=== PATIENT | male | born 1955 | race African-American/Black ===

== ENCOUNTER 2016-03-24 14:30 | Outpatient (RCR) | payer MEDICAID, MEDICARE ==
[~2016-03-24 14:30] MED LIST: LYRI75CA OR; RYZOLT PO; SOMA350T OR; VICO5TAB OR
== END 2016-04-05 ==
LOC: M PT 14:30
PROVIDERS: ATTEND Anesthesiology Pain Medicine
DX: Z51.89 Encounter for other specified aftercare (principal); M54.2 Cervicalgia; M79.1 Myalgia; M25.552 Pain in left hip
CPT/HCPCS: 97162; G8978; G8979

== ENCOUNTER 2016-04-25 10:44 | Outpatient (RCR) | payer MEDICARE | END 2016-05-06 | LOC: M PT 10:44 | PROVIDERS: ATTEND Anesthesiology Pain Medicine | DX: Z51.89 Encounter for other specified aftercare (principal); M79.1 Myalgia; M54.2 Cervicalgia; M25.552 Pain in left hip; M54.5 Low back pain | CPT/HCPCS: 97110; G8978; G8979 ==

== ENCOUNTER 2016-05-23 10:45 | Outpatient (RCR) | payer MEDICARE | END 2016-06-05 | disposition home or self-care (01) | LOC: M PT 10:45 | PROVIDERS: ATTEND Anesthesiology Pain Medicine | DX: Z51.89 Encounter for other specified aftercare (principal); M79.1 Myalgia; M54.5 Low back pain; M25.552 Pain in left hip; M54.2 Cervicalgia | CPT/HCPCS: 97110; G8978; G8979 ==

== ENCOUNTER 2017-09-26 10:49 | Emergency (ER) | payer MEDICARE, MEDICAID ==
[2017-09-26 12:42] LABS: KETONE, URINE AUTO RFX NEGATIVE (NEGATIVE); LEUKOCYTE ESTERASE UR AUTO RFX NEGATIVE (NEGATIVE); MUCUS, URINE RFX SMALL (NEGATIVE); NITRITE, URINE AUTO RFX NEGATIVE (NEGATIVE); RBC, URINE AUTO RFX 42 /HPF (0-3); SQUAM EPITHELIAL CELL UR AURFX 0 /HPF (0-6); WBC, URINE AUTO RFX 3 /HPF (0-3); YEAST LIKE CELL URINE AUTO RFX SMALL
[2017-09-26 14:17] LABS: CHLAMYDIA DNA AMPLIFICATION NEGATIVE (NEGATIVE); GC DNA AMPLIFICATION NEGATIVE (NEGATIVE)
== END 2017-09-26 13:14 | disposition home or self-care (01) ==
LOC: M ED 10:49
DX: R31.0 Gross hematuria (principal); N50.811 Right testicular pain; M54.9 Dorsalgia, unspecified; F17.210 Nicotine dependence, cigarettes, uncomplicated; Z88.8 Allergy status to other drugs, medicaments and biological substances; Z79.899 Other long term (current) drug therapy
CPT/HCPCS: 76870

== ENCOUNTER → 2017-10-27 | Outpatient (CLI) | payer MEDICARE, MEDICAID ==
[2017-10-27 17:15] LABS: ANION GAP 7 MEQ/L (8-16); BLOOD UREA NITROGEN 8 MG/DL (7-18); CALCIUM LEVEL 9.6 MG/DL (8.8-10.2); CARBON DIOXIDE LEVEL 31 MEQ/L (21-32); CHLORIDE LEVEL 103 MEQ/L (98-107); CREATININE FOR GFR 0.76 MG/DL (0.70-1.30); GLOMERULAR FILTRATION RATE > 60.0 (>49); GLUCOSE, FASTING 77 MG/DL (70-100); POTASSIUM SERUM 4.6 MEQ/L (3.5-5.1); PSA SCREENING 0.83 NG/ML (< 4.0); SODIUM LEVEL 141 MEQ/L (136-145)
[2017-10-27 18:19] LABS: APPEARANCE, URINE CLEAR (CLEAR); BACTERIA, URINE AUTO NEGATIVE (NEGATIVE); BILIRUBIN, URINE AUTO NEGATIVE (NEGATIVE); BLOOD, URINE BLOOD NEGATIVE (NEGATIVE); COLOR, URINE YELLOW (YELLOW); GLUCOSE, URINE (UA) AUTO NEGATIVE (NEGATIVE); KETONE, URINE AUTO NEGATIVE (NEGATIVE); LEUKOCYTE ESTERASE, URINE AUTO NEGATIVE (NEGATIVE); NITRITE, URINE AUTO NEGATIVE (NEGATIVE); PROTEIN, URINE AUTO NEGATIVE (NEGATIVE); RBC, URINE AUTO 1 /HPF (0-3); SPECIFIC GRAVITY URINE AUTO 1.018 (1.002-1.035); SQUAMOUS EPITHELIAL CELL UR AU 0 /HPF (0-6); WBC, URINE AUTO 1 /HPF (0-3)
== END ==
LOC: M SMT 14:13
DX: Z12.5 Encounter for screening for malignant neoplasm of prostate (principal); R31.0 Gross hematuria
CPT/HCPCS: 80048

== ENCOUNTER → 2017-11-02 | Outpatient (CLI) | payer MEDICARE, MEDICAID ==
[~2017-11-02] MED LIST changes: +ISOVUE-370 76% 100ML VIAL (Q9967) As Ordered; -LYRI75CA OR; -RYZOLT PO; -SOMA350T OR; -VICO5TAB OR
== END ==
LOC: M RAD 15:58
DX: R31.0 Gross hematuria (principal); M47.896 Other spondylosis, lumbar region; N40.0 Benign prostatic hyperplasia without lower urinary tract symptoms
CPT/HCPCS: Q9967

== ENCOUNTER → 2018-05-22 | Outpatient (REF) | payer MEDICARE, MEDICAID, OTHER ==
[~2018-05-22] MED LIST changes: +HYDROCO/APAP; -ISOVUE-370 76% 100ML VIAL (Q9967) As Ordered; +LYRI150C; +LYRI75CA OR; +RYZOLT PO; +SOMA350T OR; +TRAV04OPD; +VICO5TAB OR
[2018-05-22 09:46] LABS: BASO % 0.3 % (0.0-1.0); EOS # 0.1 10^3/uL (0.0-0.50); EOS % 1.5 % (0.0-3.0); HEMATOCRIT 51.9 % (42.0-52.0); HEMOGLOBIN 17.2 g/dl (13.5-17.5); LYMPH # 2.8 10^3/uL (1.5-4.5); LYMPH % 48.3 % (24.0-44.0); MEAN CORPUSCULAR HEMOGLOBIN 30.8 pg (27.0-33.0); MEAN CORPUSCULAR HGB CONC 33.1 g/dl (32.0-36.5); MONO # 0.5 10^3/uL (0.0-0.8); MONO % 8.4 % (0.0-5.0); NEUTROPHILS # 2.4 10^3/uL (1.8-7.7); NEUTROPHILS % 41.2 % (36.0-66.0); PLATELET COUNT, AUTOMATED 217 10^3/uL (150-450); RED BLOOD COUNT 5.58 10^6/uL (4.30-6.10); WHITE BLOOD COUNT 5.8 10^3/uL (4.0-10.0)
[2018-05-22 10:06] LABS: ALBUMIN 4.4 GM/DL (3.2-5.2); ALT/SGPT 43 U/L (12-78); BILIRUBIN,TOTAL 0.9 MG/DL (0.2-1.0); BLOOD UREA NITROGEN 9 MG/DL (7-18); CALCIUM LEVEL 9.7 MG/DL (8.8-10.2); CARBON DIOXIDE LEVEL 28 MEQ/L (21-32); CHLORIDE LEVEL 106 MEQ/L (98-107); CHOLESTEROL LEVEL 206 MG/DL (<200); CHOLESTEROL RISK RATIO 3.745 (<5); CREATININE FOR GFR 0.87 MG/DL (0.70-1.30); GLOMERULAR FILTRATION RATE > 60.0 (>49); GLUCOSE, FASTING 83 MG/DL (70-100); HDL CHOLESTEROL 55 MG/DL (>40); LDL CHOLESTEROL 124 MG/DL (<100); NON-HDL-C 151 MG/DL; POTASSIUM SERUM 4.1 MEQ/L (3.5-5.1); SODIUM LEVEL 140 MEQ/L (136-145); TOTAL PROTEIN 7.9 GM/DL (6.4-8.2); TRIGLYCERIDES LEVEL 133 MG/DL (<150)
[2018-05-22 10:17] LABS: APPEARANCE, URINE HAZY (CLEAR); BACTERIA, URINE AUTO NEGATIVE (NEGATIVE); BILIRUBIN, URINE AUTO NEGATIVE (NEGATIVE); BLOOD, URINE BLOOD NEGATIVE (NEGATIVE); COLOR, URINE AMBER (YELLOW); GLUCOSE, URINE (UA) AUTO NEGATIVE (NEGATIVE); KETONE, URINE AUTO NEGATIVE (NEGATIVE); LEUKOCYTE ESTERASE, URINE AUTO NEGATIVE (NEGATIVE); MUCUS, URINE SMALL (NEGATIVE); NITRITE, URINE AUTO NEGATIVE (NEGATIVE); PROTEIN, URINE AUTO NEGATIVE (NEGATIVE); RBC, URINE AUTO 0 /HPF (0-3); SPECIFIC GRAVITY URINE AUTO 1.019 (1.002-1.035); SQUAMOUS EPITHELIAL CELL UR AU 0 /HPF (0-6); WBC, URINE AUTO 1 /HPF (0-3)
== END ==
LOC: SKLABADC 08:56
PROVIDERS: ATTEND Family Medicine
DX: R60.9 Edema, unspecified (principal); Z79.899 Other long term (current) drug therapy

== ENCOUNTER → 2021-06-21 | Outpatient (CLI) | payer MEDICARE, MEDICAID ==
[2021-06-21 13:41] LABS: BASO % 0.3 % (0.0-1.0); EOS # 0.1 10^3/uL (0.0-0.5); EOS % 0.8 % (0.0-3.0); HEMATOCRIT 49.1 % (42.0-52.0); HEMOGLOBIN 16.2 g/dl (13.5-17.5); LYMPH # 1.7 10^3/uL (1.5-5.0); LYMPH % 23.5 % (24.0-44.0); MEAN CORPUSCULAR HEMOGLOBIN 31.1 pg (27.0-33.0); MEAN CORPUSCULAR VOLUME 94.2 fl (80.0-96.0); MONO # 0.7 10^3/uL (0.0-0.8); MONO % 9.6 % (2.0-8.0); NEUTROPHILS # 4.7 10^3/uL (1.5-8.5); NEUTROPHILS % 65.4 % (36.0-66.0); PLATELET COUNT, AUTOMATED 237 10^3/uL (150-450); RED BLOOD COUNT 5.21 10^6/uL (4.30-6.10); WHITE BLOOD COUNT 7.2 10^3/uL (4.0-10.0)
[2021-06-21 14:15] LABS: ALBUMIN 4.1 GM/DL (3.2-5.2); ALT/SGPT 44 U/L (12-78); BILIRUBIN,TOTAL 0.6 MG/DL (0.2-1.0); BLOOD UREA NITROGEN 10 MG/DL (7-18); CALCIUM LEVEL 9.9 MG/DL (8.8-10.2); CARBON DIOXIDE LEVEL 32 MEQ/L (21-32); CHLORIDE LEVEL 103 MEQ/L (98-107); CHOLESTEROL LEVEL 131 MG/DL (<200); CHOLESTEROL RISK RATIO 2.381 (<5); CREATININE FOR GFR 0.81 MG/DL (0.70-1.30); GLOMERULAR FILTRATION RATE > 60.0 (>49); GLUCOSE, FASTING 85 MG/DL (70-100); HDL CHOLESTEROL 55 MG/DL (>40); LDL CHOLESTEROL 61 MG/DL (<100); NON-HDL-C 76 MG/DL; POTASSIUM SERUM 3.9 MEQ/L (3.5-5.1); SODIUM LEVEL 138 MEQ/L (136-145); TOTAL PROTEIN 7.3 GM/DL (6.4-8.2); TRIGLYCERIDES LEVEL 75 MG/DL (<150)
== END ==
LOC: M PLALAB 10:12
PROVIDERS: ATTEND Family Medicine
DX: Z12.5 Encounter for screening for malignant neoplasm of prostate (principal); E78.5 Hyperlipidemia, unspecified; R60.9 Edema, unspecified
CPT/HCPCS: 36415; 80053; 80061; 85025; G0103

== ENCOUNTER 2021-12-02 10:15 | Emergency (ER) | payer MEDICARE ==
[~2021-12-02] VITALS: Ht 185.4 cm; Wt 77.3 kg
[2021-12-02] MEDS ORDERED: TRAV2.5D (10:28)
[2021-12-02] MEDS ORDERED: HYDR-4517 (10:28)
[2021-12-02] MEDS ORDERED: PREG200C (10:28)
[2021-12-02] MEDS ORDERED: CARI1TAB7 (10:28)
[2021-12-02 10:38] VITALS: BP 150/101
== END 2021-12-02 11:28 | disposition left against medical advice (07) ==
LOC: M ED 10:15
DX: Z53.21 Procedure and treatment not carried out due to patient leaving prior to being seen by health care provider (principal)

== ENCOUNTER → 2024-08-12 | Outpatient (CLI) | payer MEDICARE, MEDICAID ==
[~2024-08-12] MED LIST changes: +ACET-683 PO; +CARI-555 PO; +CEFD1CAP9 PO; +CEFD300CAP PO; +DOCU8.6T PO; +HYDR-4514 PO; +HYDR-4517 PO; +IBUP-1114 PO; +IPRA0.00 NEB; +LYRI200C PO; +METH-1164 PO; +MIRA33506 PO; +OXYC10TA12 PO; +PREG200C2 PO; +RISATAB3 PO; +SOMA350T PO; +TRAV2.5D OU
== END ==
LOC: M PAL 08:58
PROVIDERS: ATTEND Physician Assistant
DX: Z51.5 Encounter for palliative care (principal); C34.90 Malignant neoplasm of unspecified part of unspecified bronchus or lung; Z92.3 Personal history of irradiation; Z74.1 Need for assistance with personal care; Z79.891 Long term (current) use of opiate analgesic; Z88.0 Allergy status to penicillin; Z88.1 Allergy status to other antibiotic agents; Z88.5 Allergy status to narcotic agent; Z79.899 Other long term (current) drug therapy

== ENCOUNTER → 2024-08-13 | Outpatient (CLI) | payer MEDICARE, MEDICAID | LOC: M PLARAD 11:50 | PROVIDERS: ATTEND General Practice | DX: C34.12 Malignant neoplasm of upper lobe, left bronchus or lung (principal) | CPT/HCPCS: 78815; A9552 ==

== ENCOUNTER → 2024-08-14 | Outpatient (CLI) | payer MEDICARE, MEDICAID | LOC: M ONCR 14:01 | PROVIDERS: ATTEND General Practice | DX: C34.31 Malignant neoplasm of lower lobe, right bronchus or lung (principal); J86.9 Pyothorax without fistula; F17.210 Nicotine dependence, cigarettes, uncomplicated; G82.20 Paraplegia, unspecified; Z79.899 Other long term (current) drug therapy; Z88.0 Allergy status to penicillin; Z88.8 Allergy status to other drugs, medicaments and biological substances; Z92.3 Personal history of irradiation ==

== ENCOUNTER → 2024-08-20 | Outpatient (CLI) | payer MEDICARE, MEDICAID ==
[~2024-08-20] VITALS: Ht 185.4 cm; Wt 68.1 kg
[2024-08-20 10:17] VITALS: BP 152/104; O2SAT 98
== END ==
LOC: M PAL 10:04
PROVIDERS: ATTEND Physician Assistant
DX: Z51.5 Encounter for palliative care (principal); C34.90 Malignant neoplasm of unspecified part of unspecified bronchus or lung; Z92.3 Personal history of irradiation; Z74.1 Need for assistance with personal care; Z79.891 Long term (current) use of opiate analgesic; Z88.0 Allergy status to penicillin; Z88.1 Allergy status to other antibiotic agents; Z88.5 Allergy status to narcotic agent

== ENCOUNTER 2024-08-30 13:47 | Outpatient (RCR) | payer MEDICARE, MEDICAID | END 2024-09-05 | LOC: M ONCR 13:47 | PROVIDERS: ATTEND General Practice | DX: Z51.0 Encounter for antineoplastic radiation therapy (principal); C34.12 Malignant neoplasm of upper lobe, left bronchus or lung ==

== ENCOUNTER 2024-09-17 14:08 | Observation (INO) | payer MEDICARE, MEDICAID ==
[~2024-09-17] VITALS: Ht 185.4 cm; Wt 63.1 kg
[2024-09-17] MEDS ORDERED: HOME MED LIST COMPLETE! XX SCH (15:40)
[2024-09-17] MEDS: ACETAMINOPHEN 500 MG TAB PO SCH (18:00)
[2024-09-17 18:24] LABS: PLATELET COUNT, AUTOMATED 216 10^3/uL (150-450)
[2024-09-17 18:38] LABS: ALT/SGPT 19 U/L (7.0-40); AST/SGOT 24 U/L (<34); CALCIUM LEVEL 9.4 MG/DL (8.3-10.6); CARBON DIOXIDE LEVEL 29 MMOL/L (20-31); CHLORIDE LEVEL 103 MMOL/L (98-107); CREATININE FOR GFR 0.55 MG/DL (0.70-1.30); GLOMERULAR FILTRATION RATE > 90.0 (>49); POTASSIUM SERUM 3.4 MMOL/L (3.5-5.1); SODIUM LEVEL 142 MMOL/L (136-145)
[2024-09-17 20:01] VITALS: BP 139/99; TEMP 98.2; O2SAT 100
[2024-09-17] MEDS: SENNOSIDES/DOCUSATE SODIUM 8.6 MG/50MG TAB PO SCH (21:37)
[2024-09-17] MEDS: HEPARIN SOD 5000 UNITS/ML 1 ML VIAL/SYRINGE SQ SCH (21:38)
[2024-09-17] MEDS: PREGABALIN 100 MG CAP PO SCH (21:38)
[2024-09-17] MEDS: HYDROcodone/APAP LIQUID 7.5-325 MG 15 ML UDC PO PRN (21:44)
[2024-09-18 04:00] VITALS: BP 141/96; TEMP 98.1; O2SAT 99
[2024-09-18 08:48] LABS: PLATELET COUNT, AUTOMATED 258 10^3/uL (150-450)
[2024-09-18 09:18] LABS: ALT/SGPT 17 U/L (7.0-40); AST/SGOT 25 U/L (<34); CALCIUM LEVEL 9.9 MG/DL (8.3-10.6); CARBON DIOXIDE LEVEL 34 MMOL/L (20-31); CHLORIDE LEVEL 101 MMOL/L (98-107); CREATININE FOR GFR 0.59 MG/DL (0.70-1.30); GLOMERULAR FILTRATION RATE > 90.0 (>49); POTASSIUM SERUM 3.5 MMOL/L (3.5-5.1); SODIUM LEVEL 144 MMOL/L (136-145)
[2024-09-18] MEDS: MIRALAX *UNIT DOSE* 17 GM PACKET PO SCH (09:56)
[2024-09-18 12:23] VITALS: BP 140/95; TEMP 98.1; O2SAT 96
[2024-09-18 20:00] VITALS: BP 152/94; TEMP 98.8; O2SAT 99
[2024-09-19 04:57] VITALS: BP 156/103; TEMP 98.8; O2SAT 98
[2024-09-19 11:39] VITALS: BP 139/95; TEMP 98.8; O2SAT 91
[2024-09-20 02:17] VITALS: BP 137/88; TEMP 98.4; O2SAT 99
[2024-09-20 10:17] LABS: BASO # 0.0 10^3/uL (0.0-0.2); BASO % 0.3 % (0.0-1.0); EOS # 0.1 10^3/uL (0.0-0.5); EOS % 3.7 % (0.0-3.0); LYMPH # 1.1 10^3/uL (1.5-5.0); LYMPH % 32.2 % (24.0-44.0); MONO # 0.4 10^3/uL (0.0-0.8); MONO % 11.4 % (2.0-8.0); NEUTROPHILS # 1.8 10^3/uL (1.5-8.5); NEUTROPHILS % 51.8 % (36.0-66.0); PLATELET COUNT, AUTOMATED 234 10^3/uL (150-450)
[2024-09-20 11:12] LABS: ALT/SGPT 18 U/L (7.0-40); AST/SGOT 30 U/L (<34); CALCIUM LEVEL 9.3 MG/DL (8.3-10.6); CARBON DIOXIDE LEVEL 26 MMOL/L (20-31); CHLORIDE LEVEL 103 MMOL/L (98-107); CREATININE FOR GFR 0.53 MG/DL (0.70-1.30); GLOMERULAR FILTRATION RATE > 90.0 (>49); MAGNESIUM LEVEL 1.8 MG/DL (1.8-2.4); POTASSIUM SERUM 3.8 MMOL/L (3.5-5.1); SODIUM LEVEL 142 MMOL/L (136-145)
[2024-09-21 04:00] VITALS: BP 133/88; TEMP 98.6; O2SAT 99
[2024-09-22 03:54] VITALS: BP 147/98; TEMP 98.4; O2SAT 99
[2024-09-23 05:10] VITALS: BP 137/93; TEMP 98.1; O2SAT 95
[2024-09-23 07:57] LABS: BASO # 0.0 10^3/uL (0.0-0.2); BASO % 0.3 % (0.0-1.0); EOS # 0.1 10^3/uL (0.0-0.5); EOS % 2.8 % (0.0-3.0); LYMPH # 1.0 10^3/uL (1.5-5.0); LYMPH % 31.3 % (24.0-44.0); MONO # 0.4 10^3/uL (0.0-0.8); MONO % 10.7 % (2.0-8.0); NEUTROPHILS # 1.8 10^3/uL (1.5-8.5); NEUTROPHILS % 54.3 % (36.0-66.0); PLATELET COUNT, AUTOMATED 228 10^3/uL (150-450)
[2024-09-23] MEDS ORDERED: CISPLATIN IV ONE (08:00)
[2024-09-23] MEDS ORDERED: NS IV ONE ×2 (08:00→09:00)
[2024-09-23 08:37] LABS: ALT/SGPT 31 U/L (7.0-40); AST/SGOT 43 U/L (<34); CALCIUM LEVEL 9.6 MG/DL (8.3-10.6); CARBON DIOXIDE LEVEL 32 MMOL/L (20-31); CHLORIDE LEVEL 100 MMOL/L (98-107); CREATININE FOR GFR 0.50 MG/DL (0.70-1.30); GLOMERULAR FILTRATION RATE > 90.0 (>49); MAGNESIUM LEVEL 1.8 MG/DL (1.8-2.4); POTASSIUM SERUM 4.4 MMOL/L (3.5-5.1); SODIUM LEVEL 142 MMOL/L (136-145)
[2024-09-23] MEDS ORDERED: ETOPOSIDE IV ONE (09:00)
[2024-09-23] MEDS: PALONOSETRON 250 MCG IV IV ONE (10:26)
[2024-09-23] MEDS: dexameTHASONE 10 MG IV IV ONE (10:27)
[2024-09-23] MEDS: NS (Normal Saline) 0.9% 1,000 ML IV ONE ×2 (10:27→14:56)
[2024-09-23] MEDS: FOSAPREPITANT IV ONE (10:27)
[2024-09-23] MEDS: SODIUM CHLORIDE IV ONE (10:27)
[2024-09-23] MEDS ORDERED: ALBUTEROL SULFATE 2.5 MG/0.5 ML INH CONCENTRATE NEB SOLN INH PRN (11:00)
[2024-09-23] MEDS ORDERED: diphenhydrAMINE 50 MG/ML VIAL IV PRN (11:00)
[2024-09-23] MEDS ORDERED: FAMOTIDINE 20 MG/2 ML VIAL IV PRN (11:00)
[2024-09-23] MEDS ORDERED: EPINEPHrine INJ 1 MG/ML 1ML AMP IM PRN (11:00)
[2024-09-23] MEDS ORDERED: NS (Normal Saline) 0.9% 1,000 ML IV PRN (11:00)
[2024-09-23] MEDS: NS IV ONE ×2 (11:43→11:45)
[2024-09-23] MEDS: CISPLATIN IV ONE (11:43)
[2024-09-23] MEDS: ETOPOSIDE IV ONE (11:45)
[2024-09-23] MEDS ORDERED: SODIUM CHLORIDE 0.9% INJ 10 ML SYR IV PRN (12:40)
[2024-09-24 04:02] VITALS: BP 156/90; TEMP 98.6; O2SAT 98
[2024-09-24] MEDS: NS (Normal Saline) 0.9% 1,000 ML IV ONE ×2 (09:25→13:21)
[2024-09-24] MEDS: dexameTHASONE 10 MG IV IV ONE (09:25)
[2024-09-24] MEDS: NS IV ONE ×2 (10:45→12:03)
[2024-09-24] MEDS: CISPLATIN IV ONE (10:45)
[2024-09-24] MEDS: ETOPOSIDE IV ONE (12:03)
[2024-09-25] VITALS: BP 127/88; TEMP 98.6; O2SAT 100
[2024-09-25] MEDS: NS (Normal Saline) 0.9% 1,000 ML IV ONE ×2 (09:41→13:09)
[2024-09-25] MEDS: dexameTHASONE 10 MG IV IV ONE (09:42)
[2024-09-25] MEDS: CISPLATIN IV ONE (10:23)
[2024-09-25] MEDS: NS IV ONE ×2 (10:23→11:43)
[2024-09-25] MEDS: ETOPOSIDE IV ONE (11:43)
[2024-09-25] MEDS ORDERED: LYRI200C PO (16:02)
[2024-09-25] MEDS ORDERED: METH-1164 PO (16:02)
== END 2024-09-25 16:25 | disposition home or self-care (01) ==
LOC: M ED 14:08 → M ED INP 14:09 → M MSPAV 19:53
PROVIDERS: ADMIT Internal Medicine; ATTEND Internal Medicine
DX: B88.2 Other arthropod infestations (principal); C34.32 Malignant neoplasm of lower lobe, left bronchus or lung; G82.20 Paraplegia, unspecified; J85.2 Abscess of lung without pneumonia; N40.0 Benign prostatic hyperplasia without lower urinary tract symptoms; F17.218 Nicotine dependence, cigarettes, with other nicotine-induced disorders; F11.20 Opioid dependence, uncomplicated; Z79.899 Other long term (current) drug therapy
CPT/HCPCS: 36415; 77336; 77373; 80053; 83735; 85025; 85027; 96361; 96372; 96374; 96375; 96376; 96413; 96415; 97161; 97530; 99284; G0378; J1100; J1453; J2469; J9060; J9181

== ENCOUNTER 2024-09-24 16:00 | Outpatient (RCR) | payer MEDICARE, MEDICAID ==
[2024-09-25] MEDS ORDERED: METH-1164 PO (16:02)
[2024-09-25] MEDS ORDERED: LYRI200C PO (16:02)
== END 2024-10-06 ==
LOC: M ONCR 16:00
PROVIDERS: ATTEND General Practice
DX: Z51.0 Encounter for antineoplastic radiation therapy (principal); C34.12 Malignant neoplasm of upper lobe, left bronchus or lung

== ENCOUNTER → 2024-10-18 | Outpatient (CLI) | payer MEDICARE, MEDICAID ==
[2024-10-18 15:25] LABS: BASO # 0.0 10^3/uL (0.0-0.2); BASO % 0.5 % (0.0-1.0); EOS # 0.0 10^3/uL (0.0-0.5); EOS % 0.4 % (0.0-3.0); LYMPH # 1.1 10^3/uL (1.5-5.0); LYMPH % 18.9 % (24.0-44.0); MONO # 1.1 10^3/uL (0.0-0.8); MONO % 19.6 % (2.0-8.0); NEUTROPHILS # 3.3 10^3/uL (1.5-8.5); NEUTROPHILS % 59.0 % (36.0-66.0); PLATELET COUNT, AUTOMATED 339 10^3/uL (150-450)
[2024-10-18 15:27] LABS: ALT/SGPT 23 U/L (7.0-40); AST/SGOT 31 U/L (<34); CALCIUM LEVEL 10.3 MG/DL (8.3-10.6); CARBON DIOXIDE LEVEL 31 MMOL/L (20-31); CHLORIDE LEVEL 101 MMOL/L (98-107); CREATININE FOR GFR 0.48 MG/DL (0.70-1.30); GLOMERULAR FILTRATION RATE > 90.0 (>49); POTASSIUM SERUM 4.4 MMOL/L (3.5-5.1); SODIUM LEVEL 141 MMOL/L (136-145)
== END ==
LOC: M PLALAB 11:50
PROVIDERS: ATTEND Specialist
DX: C34.90 Malignant neoplasm of unspecified part of unspecified bronchus or lung (principal)

== ENCOUNTER → 2024-10-21 | Outpatient (CLI) | payer MEDICARE, MEDICAID ==
[~2024-10-21] MED LIST changes: +MIDAZOLAM INJ 2 MG/2 ML VIAL IV PRN; +NS (Normal Saline) 0.9% 1,000 ML IV SCH; +SENN-23 PO; +ceFAZolin SODIUM 2 GM in DEXTROSE 5% (D5W) ADV/MINI-BAG 50 ML IV ONE
[2024-10-21] MEDS: LIDOCAINE 1% MDV 20 ML VIAL SC SCH (18:54)
== END ==
LOC: M IRPRO 16:53
PROVIDERS: ATTEND Internal Medicine Hematology & Oncology
DX: C34.90 Malignant neoplasm of unspecified part of unspecified bronchus or lung (principal)

== ENCOUNTER → 2024-10-21 | Outpatient (CLI) | payer MEDICARE, MEDICAID ==
[~2024-10-21] MED LIST changes: -MIDAZOLAM INJ 2 MG/2 ML VIAL IV PRN; -NS (Normal Saline) 0.9% 1,000 ML IV SCH; +PROHANCE 279.3MG/ML 15ML VIAL As Ordered ONE; -SENN-23 PO; -ceFAZolin SODIUM 2 GM in DEXTROSE 5% (D5W) ADV/MINI-BAG 50 ML IV ONE
== END ==
LOC: M RAD 16:57
PROVIDERS: ATTEND Internal Medicine Hematology & Oncology
DX: C34.90 Malignant neoplasm of unspecified part of unspecified bronchus or lung (principal)

== ENCOUNTER 2024-10-24 09:43 | Emergency (ER) | payer MEDICARE, MEDICAID ==
[~2024-10-24] VITALS: Ht 185.4 cm; Wt 62.6 kg
[~2024-10-24 09:43] MED LIST changes: -PROHANCE 279.3MG/ML 15ML VIAL As Ordered ONE
[2024-10-24] MEDS ORDERED: HEPARIN LOCK FLUSH 100 UNITS/ML 3 ML SYRINGE IV PRN (10:05)
[2024-10-24] MEDS ORDERED: SODIUM CHLORIDE 0.9% INJ 10 ML SYR IV PRN (10:05)
[2024-10-24 11:15] LABS: BASO # 0.0 10^3/uL (0.0-0.2); BASO % 0.0 % (0.0-1.0); EOS # 0.0 10^3/uL (0.0-0.5); EOS % 0.2 % (0.0-3.0); LYMPH # 0.6 10^3/uL (1.5-5.0); LYMPH % 11.9 % (24.0-44.0); MONO # 0.3 10^3/uL (0.0-0.8); MONO % 5.7 % (2.0-8.0); NEUTROPHILS # 3.9 10^3/uL (1.5-8.5); NEUTROPHILS % 81.8 % (36.0-66.0); PLATELET COUNT, AUTOMATED 179 10^3/uL (150-450)
[2024-10-24] MEDS: [UNRECOGNIZED DRUG - OTHER] IV ONE (11:24)
[2024-10-24] MEDS: NS 0.9% IV ONE (11:24)
[2024-10-24 11:45] LABS: ALT/SGPT 32.0 U/L (7.0-40); AST/SGOT 43.0 U/L (<34); CK-MB VALUE MASS 3.1 NG/ML (<3.6); CPK CREATINE PHOSPHOKINASE 50.0 U/L (46-171); MAGNESIUM LEVEL 1.7 MG/DL (1.8-2.4); MB/CK RELATIVE INDEX 6.2 (< OR =4)
[2024-10-24] MEDS ORDERED: PREG200C2 PO (12:06)
[2024-10-24] MEDS ORDERED: SENN-23 PO (12:06)
[2024-10-24] MEDS ORDERED: METH-1164 PO (12:06)
[2024-10-24] MEDS ORDERED: HOME MED LIST COMPLETE! XX SCH (12:10)
[2024-10-24] MEDS ORDERED: ISOVUE-370 76% 100 ML VIAL As Ordered ONE (12:15)
[2024-10-24 12:35] LABS: CK-MB VALUE MASS 2.8 NG/ML (<3.6)
[2024-10-24 13:01] LABS: CPK CREATINE PHOSPHOKINASE 49.0 U/L (46-171); MB/CK RELATIVE INDEX 5.71 (< OR =4)
[2024-10-24] MEDS ORDERED: KETOROLAC 30 MG/ML 1 ML VIAL IV ONE (13:40)
[2024-10-24 14:29] LABS: CK-MB VALUE MASS 2.7 NG/ML (<3.6)
[2024-10-24 14:33] LABS: CPK CREATINE PHOSPHOKINASE 49.0 U/L (46-171); MB/CK RELATIVE INDEX 5.51 (< OR =4)
[2024-10-24 16:16] VITALS: BP 140/102; TEMP 98.2; O2SAT 98
[2024-10-25] MEDS ORDERED: HEPARIN LOCK FLUSH 100 UNITS/ML 3 ML SYRINGE IV SCH (09:00)
[2024-10-25] MEDS ORDERED: SODIUM CHLORIDE 0.9% INJ 10 ML SYR IV SCH (09:00)
[2024-10-25] MEDS ORDERED: HYDR-4517 PO (09:13)
[2024-10-25] MEDS ORDERED: METH-1164 PO (09:13)
[2024-10-25] MEDS ORDERED: SENN-23 PO (09:13)
[2024-10-25] MEDS ORDERED: PREG200C2 PO (09:13)
== END 2024-10-24 16:55 | disposition left against medical advice (07) ==
LOC: M ED 09:43
DX: R53.1 Weakness (principal); C34.90 Malignant neoplasm of unspecified part of unspecified bronchus or lung; R79.89 Other specified abnormal findings of blood chemistry; R93.2 Abnormal findings on diagnostic imaging of liver and biliary tract; J91.8 Pleural effusion in other conditions classified elsewhere; I25.84 Coronary atherosclerosis due to calcified coronary lesion; F17.200 Nicotine dependence, unspecified, uncomplicated; Z88.0 Allergy status to penicillin; Z88.8 Allergy status to other drugs, medicaments and biological substances; Z79.899 Other long term (current) drug therapy; Z53.9 Procedure and treatment not carried out, unspecified reason
CPT/HCPCS: 36415; 70450; 71045; 71275; 74177; 80047; 80076; 82550; 82553; 83735; 84443; 84484; 85025; 93005; 93041; 94760; 99285; Q9967

== ENCOUNTER 2024-11-07 14:43 | Emergency (ER) | payer MEDICARE, MEDICAID ==
[~2024-11-07] VITALS: Ht 185.4 cm; Wt 72.7 kg
[~2024-11-07 14:43] MED LIST changes: +SENN-23 PO
[2024-11-07 15:02] VITALS: TEMP 98.1
[2024-11-07] MEDS: PERCOCET 5MG/325MG TAB PO ONE (16:50)
[2024-11-07] MEDS ORDERED: ISOVUE-370 76% 100 ML VIAL As Ordered ONE (17:00)
[2024-11-07 17:07] LABS: BASO # 0.0 10^3/uL (0.0-0.2); BASO % 0.3 % (0.0-1.0); EOS # 0.1 10^3/uL (0.0-0.5); EOS % 1.7 % (0.0-3.0); LYMPH # 0.7 10^3/uL (1.5-5.0); LYMPH % 25.9 % (24.0-44.0); MONO # 0.4 10^3/uL (0.0-0.8); MONO % 15.4 % (2.0-8.0); NEUTROPHILS # 1.6 10^3/uL (1.5-8.5); NEUTROPHILS % 56.0 % (36.0-66.0); PLATELET COUNT, AUTOMATED 244 10^3/uL (150-450)
[2024-11-07 17:42] LABS: CALCIUM LEVEL 9.6 MG/DL (8.3-10.6); CARBON DIOXIDE LEVEL 33 MMOL/L (20-31); CHLORIDE LEVEL 104 MMOL/L (98-107); CREATININE FOR GFR 0.58 MG/DL (0.70-1.30); GLOMERULAR FILTRATION RATE > 90.0 (>49); POTASSIUM SERUM 4.8 MMOL/L (3.5-5.1); SODIUM LEVEL 142 MMOL/L (136-145)
[2024-11-07 19:12] VITALS: BP 153/98; O2SAT 96
== END 2024-11-07 19:18 | disposition home or self-care (01) ==
LOC: M ED 14:43 → EDBD 14:43 → M ED 19:18
DX: S09.90XA Unspecified injury of head, initial encounter (principal); V00.831A Fall from motorized mobility scooter, initial encounter; I26.99 Other pulmonary embolism without acute cor pulmonale; I51.7 Cardiomegaly; D18.09 Hemangioma of other sites; J90 Pleural effusion, not elsewhere classified; M25.422 Effusion, left elbow; M19.022 Primary osteoarthritis, left elbow; M19.012 Primary osteoarthritis, left shoulder; M61.412 Other calcification of muscle, left shoulder; C34.92 Malignant neoplasm of unspecified part of left bronchus or lung; M50.00 Cervical disc disorder with myelopathy, unspecified cervical region; F17.200 Nicotine dependence, unspecified, uncomplicated; N40.0 Benign prostatic hyperplasia without lower urinary tract symptoms; F11.10 Opioid abuse, uncomplicated; Z88.0 Allergy status to penicillin; Z88.8 Allergy status to other drugs, medicaments and biological substances; Z79.899 Other long term (current) drug therapy; Y92.410 Unspecified street and highway as the place of occurrence of the external cause; Y93.89 Activity, other specified; Y99.9 Unspecified external cause status
CPT/HCPCS: 36415; 70450; 71260; 72125; 73030; 73080; 74177; 80047; 80048; 85025; 93041; 94760; 99285; Q9967

== ENCOUNTER 2024-11-19 08:26 | Emergency (ER) | payer MEDICARE, MEDICAID ==
[~2024-11-19] VITALS: Ht 185.4 cm; Wt 70.5 kg
[2024-11-19 11:47] VITALS: BP 149/100; TEMP 99.3; O2SAT 94
[2024-11-21] MEDS ORDERED: HYDR-4517 PO (12:00)
[2024-11-21] MEDS ORDERED: PREG200C2 PO (12:00)
== END 2024-11-19 16:31 | disposition home or self-care (01) ==
LOC: EDBD 08:26 → M ED 08:26
DX: M25.511 Pain in right shoulder (principal); M85.811 Other specified disorders of bone density and structure, right shoulder; M19.011 Primary osteoarthritis, right shoulder; Z79.899 Other long term (current) drug therapy

== ENCOUNTER 2024-11-25 11:20 | Inpatient (IN) | payer MEDICARE, MEDICAID ==
[~2024-11-25] VITALS: Ht 185.4 cm; Wt 61.1 kg
[2024-11-25 12:08] LABS: BASO # 0.0 10^3/uL (0.0-0.2); BASO % 0.0 % (0.0-1.0); EOS # 0.0 10^3/uL (0.0-0.5); EOS % 0.6 % (0.0-3.0); LYMPH # 0.8 10^3/uL (1.5-5.0); LYMPH % 23.9 % (24.0-44.0); MONO # 0.1 10^3/uL (0.0-0.8); MONO % 1.6 % (2.0-8.0); NEUTROPHILS # 2.4 10^3/uL (1.5-8.5); NEUTROPHILS % 73.6 % (36.0-66.0); PLATELET COUNT, AUTOMATED 199 10^3/uL (150-450)
[2024-11-25 12:34] LABS: ETHYL ALCOHOL (ETHANOL) < 0.003 % (0.000-0.010)
[2024-11-25 12:43] LABS: ALT/SGPT 30 U/L (7.0-40); AST/SGOT 55 U/L (<34); CALCIUM LEVEL 9.3 MG/DL (8.3-10.6); CARBON DIOXIDE LEVEL 34 MMOL/L (20-31); CHLORIDE LEVEL 95 MMOL/L (98-107); CREATININE FOR GFR 0.50 MG/DL (0.70-1.30); FREE T4 1.84 NG/DL (0.89-1.76); GLOMERULAR FILTRATION RATE > 90.0 (>49); MAGNESIUM LEVEL 1.5 MG/DL (1.8-2.4); POTASSIUM SERUM 4.7 MMOL/L (3.5-5.1); SODIUM LEVEL 140 MMOL/L (136-145)
[2024-11-25] MEDS ORDERED: ISOVUE-370 76% 100 ML VIAL As Ordered ONE (14:44)
[2024-11-25] MEDS: MAGNESIUM OXIDE 400 MG TAB PO ONE (15:05)
[2024-11-25 15:10] LABS: AMPHETAMINES LEVEL URINE NEGATIVE (NEGATIVE)
[2024-11-25 15:11] LABS: BARBITURATES URINE NEGATIVE (NEGATIVE); BENZODIAZEPINES URINE NEGATIVE (NEGATIVE); METHADONE URINE NEGATIVE (NEGATIVE); PHENCYCLIDINE URINE NEGATIVE (NEGATIVE)
[2024-11-25 15:15] LABS: CANNABINOIDS URINE POSITIVE (NEGATIVE); COCAINE METABOLITE URINE POSITIVE (NEGATIVE); OPIATES URINE POSITIVE (NEGATIVE)
[2024-11-25 15:18] LABS: CK-MB VALUE MASS 2.2 NG/ML (<3.6); CPK CREATINE PHOSPHOKINASE 110.0 U/L (46-171); MB/CK RELATIVE INDEX 2.0 (< OR =4)
[2024-11-25 15:51] LABS: CK-MB VALUE MASS 2.8 NG/ML (<3.6); CPK CREATINE PHOSPHOKINASE 79 U/L (46-171); MB/CK RELATIVE INDEX 3.54 (< OR =4)
[2024-11-25 16:35] LABS: CK-MB VALUE MASS 2.5 NG/ML (<3.6)
[2024-11-25 16:38] LABS: CPK CREATINE PHOSPHOKINASE 57.0 U/L (46-171); MB/CK RELATIVE INDEX 4.38 (< OR =4)
[2024-11-25] MEDS: LevoFLOXacin IV 750 MG in IV 1 EA IV ONE (16:59)
[2024-11-25] MEDS ORDERED: CEFEPIME HCL 2 GM in DEXTROSE 5% (D5W) ADV/MINI-BAG 50 ML IV SCH (18:00)
[2024-11-25] MEDS ORDERED: HOME MED LIST COMPLETE! XX SCH ×2 (18:00→18:05)
[2024-11-25] MEDS ORDERED: HEPARIN SOD 5000 UNITS/ML 1 ML VIAL/SYRINGE IV PRN (20:00)
[2024-11-25] MEDS: CEFEPIME HCL 2 GM in DEXTROSE 5% (D5W) ADV/MINI-BAG 50 ML IV SCH (20:47)
[2024-11-25] MEDS: LR 1,000 ML IV SCH (20:50)
[2024-11-25] MEDS: HEPARIN DRIP 25,000 UNITS in IV 1 EA IV SCH (21:25)
[2024-11-25] MEDS: PREGABALIN 100 MG CAP PO SCH (21:32)
[2024-11-26 07:37] LABS: BASO # 0.0 10^3/uL (0.0-0.2); BASO % 0.0 % (0.0-1.0); EOS # 0.0 10^3/uL (0.0-0.5); EOS % 1.3 % (0.0-3.0); LYMPH # 0.7 10^3/uL (1.5-5.0); LYMPH % 24.1 % (24.0-44.0); MONO # 0.1 10^3/uL (0.0-0.8); MONO % 2.7 % (2.0-8.0); NEUTROPHILS # 2.1 10^3/uL (1.5-8.5); NEUTROPHILS % 71.6 % (36.0-66.0); PLATELET COUNT, AUTOMATED 155 10^3/uL (150-450)
[2024-11-26] MEDS: MAGNESIUM OXIDE 400 MG TAB PO SCH (09:47)
[2024-11-26] MEDS: amLODIPine 10 MG TAB PO SCH (09:47)
[2024-11-26] MEDS: hydroCHLOROthiazide 25 MG TAB PO ONE (13:09)
[2024-11-26 16:39] VITALS: BP 124/73; TEMP 97.9; O2SAT 98
[2024-11-26 20:23] VITALS: BP_SYST 113; BP_SYST 98; BP_DIAS 67; BP_DIAS 79; TEMP 98.2; O2SAT 97
[2024-11-26] MEDS: MIRALAX *UNIT DOSE* 17 GM PACKET PO PRN (21:28)
[2024-11-26] MEDS: APIXABAN 5 MG TAB PO SCH (21:29)
[2024-11-26] MEDS: SENNOSIDES/DOCUSATE SODIUM 8.6 MG/50MG TAB PO PRN (21:29)
[2024-11-26] MEDS: NICOTINE 21 MG/24 HR 1 EA TRANSDERMAL TD PRN (21:33)
[2024-11-27] VITALS (8 sets, daily range): BP systolic 90–131; BP diastolic 54–93; TEMP 97.2–98.1; O2SAT 93–99
[2024-11-27 06:41] LABS: BASO # 0.0 10^3/uL (0.0-0.2); BASO % 0.0 % (0.0-1.0); EOS # 0.0 10^3/uL (0.0-0.5); EOS % 1.3 % (0.0-3.0); LYMPH # 0.6 10^3/uL (1.5-5.0); LYMPH % 20.8 % (24.0-44.0); MONO # 0.1 10^3/uL (0.0-0.8); MONO % 2.9 % (2.0-8.0); NEUTROPHILS # 2.3 10^3/uL (1.5-8.5); NEUTROPHILS % 74.7 % (36.0-66.0); PLATELET COUNT, AUTOMATED 182 10^3/uL (150-450)
[2024-11-27 07:12] LABS: CALCIUM LEVEL 9.5 MG/DL (8.3-10.6); CARBON DIOXIDE LEVEL 35 MMOL/L (20-31); CHLORIDE LEVEL 94 MMOL/L (98-107); CREATININE FOR GFR 0.44 MG/DL (0.70-1.30); GLOMERULAR FILTRATION RATE > 90.0 (>49); MAGNESIUM LEVEL 1.4 MG/DL (1.8-2.4); POTASSIUM SERUM 3.9 MMOL/L (3.5-5.1); SODIUM LEVEL 139 MMOL/L (136-145)
[2024-11-27] MEDS: MAG SULF 1GM/100ML (MAG RUN) 1 GM in IV 1 EA IV SCH (08:23)
[2024-11-27] MEDS: hydroCHLOROthiazide 25 MG TAB PO SCH (08:24)
[2024-11-27] MEDS: MAGNESIUM OXIDE 400 MG TAB PO SCH (08:25)
[2024-11-27] MEDS: guaiFENesin ER TABLET 600 MG TAB PO SCH (08:25)
[2024-11-27] MEDS: MAGNESIUM CITRATE 300 ML BTL PO ONE (15:33)
[2024-11-27] MEDS: BISACODYL 10 MG SUPP PR ONE (15:33)
[2024-11-27] MEDS: BISACODYL 10 MG SUPP PR SCH (21:00)
[2024-11-27] MEDS: SENNOSIDES/DOCUSATE SODIUM 8.6 MG/50MG TAB PO SCH (21:18)
[2024-11-28] MEDS: ACETAMINOPHEN 500 MG TAB PO PRN (02:29)
[2024-11-28 04:08] VITALS: BP 134/93; TEMP 97.5; O2SAT 99
[2024-11-28 06:27] LABS: BASO # 0.0 10^3/uL (0.0-0.2); BASO % 0.3 % (0.0-1.0); EOS # 0.0 10^3/uL (0.0-0.5); EOS % 1.2 % (0.0-3.0); LYMPH # 0.7 10^3/uL (1.5-5.0); LYMPH % 20.5 % (24.0-44.0); MONO # 0.1 10^3/uL (0.0-0.8); MONO % 3.8 % (2.0-8.0); NEUTROPHILS # 2.5 10^3/uL (1.5-8.5); NEUTROPHILS % 73.6 % (36.0-66.0); PLATELET COUNT, AUTOMATED 179 10^3/uL (150-450)
[2024-11-28 06:59] LABS: CALCIUM LEVEL 9.0 MG/DL (8.3-10.6); CARBON DIOXIDE LEVEL 37 MMOL/L (20-31); CHLORIDE LEVEL 94 MMOL/L (98-107); CREATININE FOR GFR 0.49 MG/DL (0.70-1.30); GLOMERULAR FILTRATION RATE > 90.0 (>49); MAGNESIUM LEVEL 1.6 MG/DL (1.8-2.4); POTASSIUM SERUM 4.1 MMOL/L (3.5-5.1); SODIUM LEVEL 137 MMOL/L (136-145)
[2024-11-28 08:00] VITALS: BP 107/80; TEMP 97.9; O2SAT 100
[2024-11-28] MEDS: MAG SULF 1GM/100ML (MAG RUN) 1 GM in IV 1 EA IV SCH (08:39)
[2024-11-28 08:42] VITALS: BP 107/80
[2024-11-28 12:00] VITALS: BP 78/54; TEMP 98.1; O2SAT 100
[2024-11-28] MEDS: NS (Normal Saline) 0.9% 1,000 ML IV STA (12:18)
[2024-11-28] MEDS: NS (Normal Saline) 0.9% 1,000 ML IV ONE (13:15)
[2024-11-28 16:00] VITALS: BP 121/75; TEMP 98.1; O2SAT 100
[2024-11-28] MEDS: NS (Normal Saline) 0.9% 1,000 ML IV SCH (17:04)
[2024-11-28 20:50] VITALS: BP 130/82; TEMP 97.9; O2SAT 97
[2024-11-29 00:32] VITALS: BP 120/58; TEMP 97.9; O2SAT 96
[2024-11-29 05:32] VITALS: BP 138/82; TEMP 97.9; O2SAT 97
[2024-11-29 06:28] LABS: BASO # 0.0 10^3/uL (0.0-0.2); BASO % 0.5 % (0.0-1.0); EOS # 0.1 10^3/uL (0.0-0.5); EOS % 1.4 % (0.0-3.0); LYMPH # 0.8 10^3/uL (1.5-5.0); LYMPH % 21.6 % (24.0-44.0); MONO # 0.2 10^3/uL (0.0-0.8); MONO % 5.8 % (2.0-8.0); NEUTROPHILS # 2.6 10^3/uL (1.5-8.5); NEUTROPHILS % 70.2 % (36.0-66.0); PLATELET COUNT, AUTOMATED 153 10^3/uL (150-450)
[2024-11-29 06:54] LABS: CALCIUM LEVEL 9.1 MG/DL (8.3-10.6); CARBON DIOXIDE LEVEL 32 MMOL/L (20-31); CHLORIDE LEVEL 100 MMOL/L (98-107); CREATININE FOR GFR 0.46 MG/DL (0.70-1.30); GLOMERULAR FILTRATION RATE > 90.0 (>49); MAGNESIUM LEVEL 1.4 MG/DL (1.8-2.4); POTASSIUM SERUM 4.2 MMOL/L (3.5-5.1); SODIUM LEVEL 140 MMOL/L (136-145)
[2024-11-29] MEDS ORDERED: ELIQ5TAB PO (07:40)
[2024-11-29] MEDS: MAGNESIUM OXIDE 400 MG TAB PO SCH (08:05)
[2024-11-29] MEDS: MAG SULF 1GM/100ML (MAG RUN) 1 GM in IV 1 EA IV SCH (08:05)
[2024-11-29 08:16] VITALS: BP 138/72; TEMP 97.9; O2SAT 97
[2024-11-29 11:50] VITALS: BP 143/93; TEMP 97.9; O2SAT 100
[2024-11-29 16:00] VITALS: BP 130/82; TEMP 97.7; O2SAT 96
[2024-11-29 20:16] VITALS: BP 109/78; TEMP 97.5; O2SAT 98
[2024-11-30] VITALS (7 sets, daily range): BP systolic 98–135; BP diastolic 68–86; TEMP 97.5–98.7; O2SAT 97–100
[2024-11-30 08:29] LABS: BASO # 0.0 10^3/uL (0.0-0.2); BASO % 0.5 % (0.0-1.0); EOS # 0.0 10^3/uL (0.0-0.5); EOS % 1.1 % (0.0-3.0); LYMPH # 0.8 10^3/uL (1.5-5.0); LYMPH % 21.6 % (24.0-44.0); MONO # 0.3 10^3/uL (0.0-0.8); MONO % 8.7 % (2.0-8.0); NEUTROPHILS # 2.6 10^3/uL (1.5-8.5); NEUTROPHILS % 67.6 % (36.0-66.0); PLATELET COUNT, AUTOMATED 143 10^3/uL (150-450)
[2024-11-30] MEDS: FLUZONE HIGH DOSE (65+) 0.5 ML SYRINGE (25-26) IM.IMMUN ONE (09:01)
[2024-11-30 09:02] LABS: CALCIUM LEVEL 8.9 MG/DL (8.3-10.6); CARBON DIOXIDE LEVEL 32 MMOL/L (20-31); CHLORIDE LEVEL 99 MMOL/L (98-107); CREATININE FOR GFR 0.47 MG/DL (0.70-1.30); GLOMERULAR FILTRATION RATE > 90.0 (>49); MAGNESIUM LEVEL 1.5 MG/DL (1.8-2.4); POTASSIUM SERUM 3.9 MMOL/L (3.5-5.1); SODIUM LEVEL 139 MMOL/L (136-145)
[2024-11-30] MEDS: MAG SULF 1GM/100ML (MAG RUN) 1 GM in IV 1 EA IV SCH (16:31)
[2024-11-30 22:17] LABS: VENOUS BASE EXCESS 6.4 (-2.0-2.0); VENOUS HCO3 31.1 MMOL/L (23.0-27.0); VENOUS O2 SATURATION 99.2 % (60.0-80.0); VENOUS PARTIAL PRESSURE CO2 45.2 mmHg (38.0-50.0); VENOUS PARTIAL PRESSURE O2 143.2 mmHg (30.0-50.0); VENOUS PH 7.456 UNITS (7.330-7.430); VENOUS STANDARD HCO3 30.3 MMOL/L; VENOUS TOTAL CO2 32.5 MMOL/L (24.0-28.0)
[2024-11-30 22:49] LABS: ALT/SGPT 30 U/L (7.0-40); AST/SGOT 32 U/L (<34); CALCIUM LEVEL 9.3 MG/DL (8.3-10.6); CARBON DIOXIDE LEVEL 34 MMOL/L (20-31); CHLORIDE LEVEL 99 MMOL/L (98-107); CREATININE FOR GFR 0.62 MG/DL (0.70-1.30); GLOMERULAR FILTRATION RATE > 90.0 (>49); POTASSIUM SERUM 4.1 MMOL/L (3.5-5.1); SODIUM LEVEL 140 MMOL/L (136-145)
[2024-12-01] VITALS: BP 117/74; TEMP 97.9; O2SAT 99
[2024-12-01 04:00] VITALS: BP 116/75; TEMP 97.7; O2SAT 99
[2024-12-01 08:00] VITALS: BP 109/60; TEMP 97.9; O2SAT 99
[2024-12-01 09:20] LABS: BASO # 0.0 10^3/uL (0.0-0.2); BASO % 0.3 % (0.0-1.0); EOS # 0.0 10^3/uL (0.0-0.5); EOS % 0.8 % (0.0-3.0); LYMPH # 0.8 10^3/uL (1.5-5.0); LYMPH % 20.9 % (24.0-44.0); MONO # 0.4 10^3/uL (0.0-0.8); MONO % 12.3 % (2.0-8.0); NEUTROPHILS # 2.3 10^3/uL (1.5-8.5); NEUTROPHILS % 65.1 % (36.0-66.0); PLATELET COUNT, AUTOMATED 145 10^3/uL (150-450)
[2024-12-01 10:10] LABS: CALCIUM LEVEL 9.1 MG/DL (8.3-10.6); CARBON DIOXIDE LEVEL 33 MMOL/L (20-31); CHLORIDE LEVEL 99 MMOL/L (98-107); CREATININE FOR GFR 0.55 MG/DL (0.70-1.30); GLOMERULAR FILTRATION RATE > 90.0 (>49); MAGNESIUM LEVEL 1.6 MG/DL (1.8-2.4); POTASSIUM SERUM 3.9 MMOL/L (3.5-5.1); SODIUM LEVEL 142 MMOL/L (136-145)
[2024-12-01 12:00] VITALS: BP 108/75; TEMP 97.7; O2SAT 98
[2024-12-01] MEDS: MAG SULF 1GM/100ML (MAG RUN) 1 GM in IV 1 EA IV SCH (13:42)
[2024-12-01 16:00] VITALS: BP 103/66; TEMP 97.9; O2SAT 99
[2024-12-01 21:28] VITALS: BP 148/85; TEMP 97.7; O2SAT 98
[2024-12-02] VITALS (12 sets, daily range): BP systolic 90–145; BP diastolic 58–91; TEMP 97.2–97.9; O2SAT 94–99
[2024-12-02 06:15] LABS: BASO # 0.0 10^3/uL (0.0-0.2); BASO % 0.3 % (0.0-1.0); EOS # 0.1 10^3/uL (0.0-0.5); EOS % 1.7 % (0.0-3.0); LYMPH # 0.7 10^3/uL (1.5-5.0); LYMPH % 21.0 % (24.0-44.0); MONO # 0.6 10^3/uL (0.0-0.8); MONO % 15.9 % (2.0-8.0); NEUTROPHILS # 2.1 10^3/uL (1.5-8.5); NEUTROPHILS % 60.5 % (36.0-66.0); PLATELET COUNT, AUTOMATED 148 10^3/uL (150-450)
[2024-12-02 06:46] LABS: CALCIUM LEVEL 9.4 MG/DL (8.3-10.6); CARBON DIOXIDE LEVEL 36 MMOL/L (20-31); CHLORIDE LEVEL 98 MMOL/L (98-107); CREATININE FOR GFR 0.59 MG/DL (0.70-1.30); GLOMERULAR FILTRATION RATE > 90.0 (>49); MAGNESIUM LEVEL 1.8 MG/DL (1.8-2.4); POTASSIUM SERUM 4.6 MMOL/L (3.5-5.1); SODIUM LEVEL 141 MMOL/L (136-145)
[2024-12-02 20:27] LABS: MYCOPLASMA PNEUMONIAE IGG 2.5 (<=0.90); MYCOPLASMA PNEUMONIAE IGM 141.0 U/mL (<770)
[2024-12-03] VITALS (8 sets, daily range): BP systolic 85–124; BP diastolic 58–79; TEMP 97.3–98.1; O2SAT 92–100
[2024-12-03 07:07] LABS: CALCIUM LEVEL 10.3 MG/DL (8.3-10.6); CARBON DIOXIDE LEVEL 33 MMOL/L (20-31); CHLORIDE LEVEL 98 MMOL/L (98-107); CREATININE FOR GFR 0.51 MG/DL (0.70-1.30); GLOMERULAR FILTRATION RATE > 90.0 (>49); MAGNESIUM LEVEL 1.6 MG/DL (1.8-2.4); POTASSIUM SERUM 4.9 MMOL/L (3.5-5.1); SODIUM LEVEL 138 MMOL/L (136-145)
[2024-12-03] MEDS: PREGABALIN 75 MG CAP PO SCH (13:56)
[2024-12-03] MEDS: PREGABALIN 100 MG CAP PO SCH (22:27)
[2024-12-04] VITALS (7 sets, daily range): BP systolic 90–134; BP diastolic 58–87; TEMP 97.5–98.6; O2SAT 95–97
[2024-12-05 04:30] VITALS: BP 119/68; TEMP 97.9; O2SAT 98
[2024-12-05 08:00] VITALS: BP 114/66; TEMP 97.7; O2SAT 96
[2024-12-05 12:00] VITALS: BP 132/78; TEMP 97.9; O2SAT 99
[2024-12-05] MEDS: APIXABAN 5 MG TAB PO SCH (13:00)
[2024-12-05 18:09] LABS: PLATELET COUNT, AUTOMATED 186 10^3/uL (150-450)
[2024-12-05 18:32] LABS: CALCIUM LEVEL 9.3 MG/DL (8.3-10.6); CARBON DIOXIDE LEVEL 32 MMOL/L (20-31); CHLORIDE LEVEL 99 MMOL/L (98-107); CREATININE FOR GFR 0.50 MG/DL (0.70-1.30); GLOMERULAR FILTRATION RATE > 90.0 (>49); MAGNESIUM LEVEL 1.6 MG/DL (1.8-2.4); POTASSIUM SERUM 4.0 MMOL/L (3.5-5.1); SODIUM LEVEL 137 MMOL/L (136-145)
[2024-12-05 20:00] VITALS: BP 130/80; TEMP 97.3; O2SAT 95
[2024-12-06 00:50] VITALS: BP 101/67; TEMP 97.9; O2SAT 99
[2024-12-06 03:32] VITALS: BP 127/78; TEMP 97.7; O2SAT 97
[2024-12-06 08:00] VITALS: BP 140/96; TEMP 97.7; O2SAT 97
[2024-12-06 08:45] LABS: PLATELET COUNT, AUTOMATED 194 10^3/uL (150-450)
[2024-12-06 09:12] LABS: CALCIUM LEVEL 9.3 MG/DL (8.3-10.6); CARBON DIOXIDE LEVEL 30 MMOL/L (20-31); CHLORIDE LEVEL 101 MMOL/L (98-107); CREATININE FOR GFR 0.54 MG/DL (0.70-1.30); GLOMERULAR FILTRATION RATE > 90.0 (>49); POTASSIUM SERUM 4.2 MMOL/L (3.5-5.1); SODIUM LEVEL 141 MMOL/L (136-145)
[2024-12-06] MEDS ORDERED: NICO21PAT TD (11:08)
[2024-12-06] MEDS ORDERED: MAGN400T33 PO (11:08)
[2024-12-06] MEDS ORDERED: PROHANCE 279.3MG/ML 15ML VIAL As Ordered ONE (11:24)
== END 2024-12-06 13:12 | disposition home health service (06) | DRG 175 ==
LOC: EDBD 11:20 → M ED 11:20 → M ED INP 19:47 → M MSPAV 11-26 16:37
PROVIDERS: ADMIT Student in an Organized Health Care Education/Training Program; ATTEND Student in an Organized Health Care Education/Training Program
DX: I26.99 Other pulmonary embolism without acute cor pulmonale (principal); J18.9 Pneumonia, unspecified organism; C34.92 Malignant neoplasm of unspecified part of left bronchus or lung; G82.20 Paraplegia, unspecified; J90 Pleural effusion, not elsewhere classified; F17.210 Nicotine dependence, cigarettes, uncomplicated; N40.0 Benign prostatic hyperplasia without lower urinary tract symptoms; G89.29 Other chronic pain; D70.9 Neutropenia, unspecified; K59.00 Constipation, unspecified; E83.42 Hypomagnesemia; Z79.899 Other long term (current) drug therapy; Z88.0 Allergy status to penicillin; Z88.8 Allergy status to other drugs, medicaments and biological substances; Z86.711 Personal history of pulmonary embolism; Z79.891 Long term (current) use of opiate analgesic; Z74.01 Bed confinement status

== ENCOUNTER → 2024-12-10 | Outpatient (CLI) | payer MEDICARE, MEDICAID ==
[~2024-12-10] MED LIST changes: +ELIQ5TAB PO; +MAGN400T33 PO; +NICO21PAT TD
== END ==
LOC: M PAL 13:22
PROVIDERS: ATTEND Physician Assistant
DX: Z51.5 Encounter for palliative care (principal); C34.91 Malignant neoplasm of unspecified part of right bronchus or lung; I26.99 Other pulmonary embolism without acute cor pulmonale; Z74.1 Need for assistance with personal care; Z92.21 Personal history of antineoplastic chemotherapy; Z79.891 Long term (current) use of opiate analgesic; Z88.1 Allergy status to other antibiotic agents; Z88.0 Allergy status to penicillin; Z88.5 Allergy status to narcotic agent

== ENCOUNTER 2024-12-13 09:47 | Emergency (ER) | payer MEDICARE, MEDICAID ==
[~2024-12-13] VITALS: Ht 185.4 cm; Wt 61.6 kg
[2024-12-13 10:23] LABS: PLATELET COUNT, AUTOMATED 274 10^3/uL (150-450)
[2024-12-13 10:45] LABS: ALT/SGPT 36 U/L (7.0-40); AST/SGOT 66 U/L (<34); CALCIUM LEVEL 9.7 MG/DL (8.3-10.6); CARBON DIOXIDE LEVEL 32 MMOL/L (20-31); CHLORIDE LEVEL 99 MMOL/L (98-107); CREATININE FOR GFR 0.54 MG/DL (0.70-1.30); GLOMERULAR FILTRATION RATE > 90.0 (>49); POTASSIUM SERUM 4.8 MMOL/L (3.5-5.1); SODIUM LEVEL 143 MMOL/L (136-145)
[2024-12-13 10:48] LABS: D-DIMER QUANT 1.46 ug/mL (<0.5); INR 0.95
[2024-12-13 10:57] LABS: ATYPICAL LYMPH 10 % (0-5); BASOPHILS 1 % (0-1); LYMPHOCYTES 36 % (16-44); MONOCYTES 17 % (0-5); NEUTROPHILS 36 % (28-66); PLATELET ESTIMATE NORMAL (NORMAL)
[2024-12-13] MEDS ORDERED: ISOVUE-370 76% 100 ML VIAL As Ordered ONE (12:59)
[2024-12-13] MEDS ORDERED: NICO21PAT TOP (14:36)
[2024-12-13] MEDS ORDERED: ELIQ5TAB PO (14:36)
[2024-12-13] MEDS ORDERED: LYRI200C PO (14:36)
[2024-12-13] MEDS ORDERED: MAGN400T2 PO (14:36)
[2024-12-13] MEDS ORDERED: HOME MED LIST COMPLETE! XX SCH (14:40)
[2024-12-13 18:38] VITALS: BP 158/99; TEMP 97.6; O2SAT 98
== END 2024-12-13 18:42 | disposition home or self-care (01) ==
LOC: M ED 09:47
DX: R06.02 Shortness of breath (principal); C34.90 Malignant neoplasm of unspecified part of unspecified bronchus or lung; I44.4 Left anterior fascicular block; N40.0 Benign prostatic hyperplasia without lower urinary tract symptoms; F17.200 Nicotine dependence, unspecified, uncomplicated; F12.10 Cannabis abuse, uncomplicated; Z86.711 Personal history of pulmonary embolism; Z88.0 Allergy status to penicillin; Z88.8 Allergy status to other drugs, medicaments and biological substances; Z79.01 Long term (current) use of anticoagulants; Z79.899 Other long term (current) drug therapy
CPT/HCPCS: 36415; 71045; 71275; 80048; 80076; 83605; 83880; 84145; 85025; 85379; 85610; 87040; 87486; 87581; 87633; 87798; 93005; 93041; 94760; 99285; Q9967

== ENCOUNTER 2024-12-21 16:59 | Inpatient (IN) | payer MEDICARE, MEDICAID ==
[~2024-12-21] VITALS: Ht 185.4 cm; Wt 66.5 kg
[~2024-12-21 16:59] MED LIST changes: -DOCU8.6T PO; +MAGN400T2 PO; +NICO21PAT TOP; +SENN-208 PO
[2024-12-21] MEDS ORDERED: SODIUM CHLORIDE 0.9% INJ 10 ML SYR IV PRN (17:40)
[2024-12-21] MEDS ORDERED: HEPARIN LOCK FLUSH 100 UNITS/ML 3 ML SYRINGE IV PRN (17:40)
[2024-12-21 18:16] LABS: BASO # 0.0 10^3/uL (0.0-0.2); BASO % 0.2 % (0.0-1.0); EOS # 0.0 10^3/uL (0.0-0.5); EOS % 0.5 % (0.0-3.0); LYMPH # 1.4 10^3/uL (1.5-5.0); LYMPH % 22.0 % (24.0-44.0); MONO # 1.2 10^3/uL (0.0-0.8); MONO % 18.6 % (2.0-8.0); NEUTROPHILS # 3.6 10^3/uL (1.5-8.5); NEUTROPHILS % 57.9 % (36.0-66.0); PLATELET COUNT, AUTOMATED 159 10^3/uL (150-450)
[2024-12-21 18:37] LABS: INR 0.87
[2024-12-21 18:49] LABS: ALT/SGPT 19 U/L (7.0-40); AST/SGOT 38 U/L (<34); CALCIUM LEVEL 9.3 MG/DL (8.3-10.6); CARBON DIOXIDE LEVEL 29 MMOL/L (20-31); CHLORIDE LEVEL 102 MMOL/L (98-107); CK-MB VALUE MASS 2.9 NG/ML (<3.6); CREATININE FOR GFR 0.50 MG/DL (0.70-1.30); GLOMERULAR FILTRATION RATE > 90.0 (>49); POTASSIUM SERUM 3.9 MMOL/L (3.5-5.1); SODIUM LEVEL 140 MMOL/L (136-145)
[2024-12-21 18:51] LABS: FREE T4 1.36 NG/DL (0.89-1.76)
[2024-12-21 18:52] LABS: CPK CREATINE PHOSPHOKINASE 97 U/L (46-171); MB/CK RELATIVE INDEX 2.98 (< OR =4)
[2024-12-21] MEDS ORDERED: ISOVUE-370 76% 100 ML VIAL As Ordered ONE (19:10)
[2024-12-21 20:45] LABS: CK-MB VALUE MASS 3.0 NG/ML (<3.6)
[2024-12-21 20:51] LABS: CPK CREATINE PHOSPHOKINASE 92.0 U/L (46-171); MB/CK RELATIVE INDEX 3.26 (< OR =4)
[2024-12-21] MEDS ORDERED: MOM 30 ML SUSPENSION UDC PO PRN (22:05)
[2024-12-21] MEDS: FACTOR XA,INACTIVATED-ZHZO 400 MG in APPROPRIATE DILUENT 40 ML IV ONE (22:17)
[2024-12-21] MEDS: FACTOR XA,INACTIVATED-ZHZO 480 MG in APPROPRIATE DILUENT 48 ML IV ONE (22:18)
[2024-12-21] MEDS ORDERED: SENN-117 PO (23:02)
[2024-12-21] MEDS ORDERED: HYDR-4517 PO (23:02)
[2024-12-21] MEDS ORDERED: HOME MED LIST COMPLETE! XX SCH (23:05)
[2024-12-22] VITALS (11 sets, daily range): BP systolic 92–153; BP diastolic 66–96; TEMP 96.9–98.7; O2SAT 97–99
[2024-12-22] MEDS: ACETAMINOPHEN 325 MG TAB PO PRN (01:44)
[2024-12-22 04:18] LABS: PLATELET COUNT, AUTOMATED 159 10^3/uL (150-450)
[2024-12-22] MEDS: MAG SULF 1GM/100ML (MAG RUN) 1 GM in IV 1 EA IV ONE (05:56)
[2024-12-22] MEDS: PANTOPRAZOLE 40MG TAB PO SCH (16:55)
[2024-12-22] MEDS: MAGNESIUM OXIDE 400 MG TAB PO SCH (16:56)
[2024-12-23] VITALS: BP 111/77; TEMP 98.3; O2SAT 95
[2024-12-23] MEDS: PREGABALIN 100 MG CAP PO PRN (00:12)
[2024-12-23 04:00] VITALS: BP 113/71; TEMP 98.4; O2SAT 99
[2024-12-23 05:43] LABS: ALT/SGPT 18 U/L (7.0-40); AST/SGOT 28 U/L (<34); CALCIUM LEVEL 9.3 MG/DL (8.3-10.6); CARBON DIOXIDE LEVEL 28 MMOL/L (20-31); CHLORIDE LEVEL 103 MMOL/L (98-107); CREATININE FOR GFR 0.55 MG/DL (0.70-1.30); GLOMERULAR FILTRATION RATE > 90.0 (>49); MAGNESIUM LEVEL 1.5 MG/DL (1.8-2.4); POTASSIUM SERUM 3.8 MMOL/L (3.5-5.1); SODIUM LEVEL 142 MMOL/L (136-145)
[2024-12-23 07:34] VITALS: BP 104/69; TEMP 97.8; O2SAT 99
[2024-12-23] MEDS: MAG SULF 1GM/100ML (MAG RUN) 1 GM in IV 1 EA IV ONE (08:30)
[2024-12-23 12:03] VITALS: BP 103/69; TEMP 98.5; O2SAT 98
[2024-12-23] MEDS: NICOTINE 14 MG/24 HR TRANSDERMAL TD SCH (12:07)
[2024-12-23] MEDS: ENOXAPARIN 30 MG/0.3 ML SYRINGE (J1650 PER 10MG) SC SCH (12:08)
[2024-12-23 16:00] VITALS: BP 114/77; TEMP 98.5; O2SAT 97
[2024-12-23 20:00] VITALS: BP 113/64; TEMP 99.1; O2SAT 98
[2024-12-24] VITALS: BP 117/76; TEMP 99.2; O2SAT 96
[2024-12-24 04:00] VITALS: BP 134/98; TEMP 97.9; TEMP 99.1; O2SAT 97
[2024-12-24 04:58] LABS: PLATELET COUNT, AUTOMATED 119 10^3/uL (150-450)
[2024-12-24 05:13] LABS: CALCIUM LEVEL 9.2 MG/DL (8.3-10.6); CARBON DIOXIDE LEVEL 32 MMOL/L (20-31); CHLORIDE LEVEL 101 MMOL/L (98-107); CREATININE FOR GFR 0.54 MG/DL (0.70-1.30); GLOMERULAR FILTRATION RATE > 90.0 (>49); POTASSIUM SERUM 4.3 MMOL/L (3.5-5.1); SODIUM LEVEL 140 MMOL/L (136-145)
[2024-12-24 08:00] VITALS: BP 130/91; TEMP 98.3; O2SAT 95
[2024-12-24 15:10] LABS: BARBITURATES URINE NEGATIVE (NEGATIVE)
[2024-12-24 15:11] LABS: AMPHETAMINES LEVEL URINE NEGATIVE (NEGATIVE); BENZODIAZEPINES URINE NEGATIVE (NEGATIVE); CANNABINOIDS URINE NEGATIVE (NEGATIVE); COCAINE METABOLITE URINE NEGATIVE (NEGATIVE); METHADONE URINE NEGATIVE (NEGATIVE); OPIATES URINE NEGATIVE (NEGATIVE); PHENCYCLIDINE URINE NEGATIVE (NEGATIVE)
[2024-12-24 16:00] VITALS: BP 137/90; TEMP 99.1; O2SAT 99
[2024-12-24 20:00] VITALS: BP 134/81; TEMP 98.8; O2SAT 97
[2024-12-24 21:05] VITALS: BP 124/74; TEMP 100.6; O2SAT 97
[2024-12-25] VITALS (7 sets, daily range): BP systolic 122–156; BP diastolic 78–100; TEMP 98.2–99.7; O2SAT 96–99
[2024-12-25] MEDS: SENNOSIDES/DOCUSATE SODIUM 8.6 MG/50MG TAB PO PRN (09:04)
[2024-12-26 00:46] VITALS: BP 131/85; TEMP 100.4; O2SAT 97
[2024-12-26 07:00] VITALS: BP 156/81; TEMP 99.7; O2SAT 96
[2024-12-26 07:10] LABS: BASO # 0.0 10^3/uL (0.0-0.2); BASO % 0.2 % (0.0-1.0); EOS # 0.0 10^3/uL (0.0-0.5); EOS % 0.8 % (0.0-3.0); LYMPH # 1.1 10^3/uL (1.5-5.0); LYMPH % 21.1 % (24.0-44.0); MONO # 1.0 10^3/uL (0.0-0.8); MONO % 18.8 % (2.0-8.0); NEUTROPHILS # 3.1 10^3/uL (1.5-8.5); NEUTROPHILS % 58.5 % (36.0-66.0); PLATELET COUNT, AUTOMATED 147 10^3/uL (150-450)
[2024-12-26 08:10] LABS: CALCIUM LEVEL 9.4 MG/DL (8.3-10.6); CARBON DIOXIDE LEVEL 31 MMOL/L (20-31); CHLORIDE LEVEL 102 MMOL/L (98-107); CREATININE FOR GFR 0.54 MG/DL (0.70-1.30); GLOMERULAR FILTRATION RATE > 90.0 (>49); MAGNESIUM LEVEL 1.6 MG/DL (1.8-2.4); POTASSIUM SERUM 4.3 MMOL/L (3.5-5.1); SODIUM LEVEL 141 MMOL/L (136-145)
[2024-12-26 09:02] VITALS: BP 105/62; TEMP 99.2; O2SAT 96
[2024-12-26 10:30] VITALS: BP 107/74; O2SAT 99
[2024-12-26 15:08] VITALS: BP 146/97; TEMP 98.1; O2SAT 99
[2024-12-26 20:57] VITALS: BP 124/84; TEMP 98.7; O2SAT 96
[2024-12-27 07:03] VITALS: BP 122/73; TEMP 98.7; O2SAT 96
[2024-12-28 06:00] VITALS: BP 136/89; TEMP 100.3; O2SAT 96
[2024-12-28 09:30] VITALS: BP 118/75; TEMP 99.9; O2SAT 97
[2024-12-29 06:00] VITALS: BP 108/76; TEMP 99.2; O2SAT 96
[2024-12-30 06:00] VITALS: BP 128/86; TEMP 98.7; O2SAT 97
[2024-12-30] MEDS ORDERED: ACETAMINOPHEN 650 MG PO ONE (10:00)
[2024-12-31 06:45] VITALS: BP 129/76; TEMP 99.7; O2SAT 95
[2024-12-31 06:47] LABS: BASO # 0.0 10^3/uL (0.0-0.2); BASO % 0.4 % (0.0-1.0); EOS # 0.1 10^3/uL (0.0-0.5); EOS % 1.6 % (0.0-3.0); LYMPH # 1.0 10^3/uL (1.5-5.0); LYMPH % 22.9 % (24.0-44.0); MONO # 0.7 10^3/uL (0.0-0.8); MONO % 15.2 % (2.0-8.0); NEUTROPHILS # 2.6 10^3/uL (1.5-8.5); NEUTROPHILS % 59.2 % (36.0-66.0); PLATELET COUNT, AUTOMATED 233 10^3/uL (150-450)
[2024-12-31 07:13] LABS: CALCIUM LEVEL 9.6 MG/DL (8.3-10.6); CARBON DIOXIDE LEVEL 29 MMOL/L (20-31); CHLORIDE LEVEL 99 MMOL/L (98-107); CREATININE FOR GFR 0.57 MG/DL (0.70-1.30); GLOMERULAR FILTRATION RATE > 90.0 (>49); MAGNESIUM LEVEL 1.6 MG/DL (1.8-2.4); POTASSIUM SERUM 3.9 MMOL/L (3.5-5.1); SODIUM LEVEL 136 MMOL/L (136-145)
[2025-01-01 06:29] VITALS: BP 107/68; TEMP 99.8; O2SAT 97
[2025-01-01] MEDS ORDERED: HYOSCYAMINE SULFATE 0.125 MG SUBL TABLET PO PRN (17:00)
[2025-01-01] MEDS ORDERED: ONDANSETRON 4MG ORAL DISINTEGRATING TAB PO PRN (17:00)
[2025-01-01] MEDS ORDERED: ONDANSETRON 4MG/2ML VIAL IV PRN (17:00)
[2025-01-01] MEDS ORDERED: SCOPOLAMINE 1MG TRANSDERMAL PATCH TOP PRN (17:00)
[2025-01-01] MEDS ORDERED: ATROPINE SULFATE 1% OPHTH SOLN 2 ML BTL SL PRN (17:00)
[2025-01-02] MEDS: LORazepam 1 MG TAB PO PRN (02:02)
[2025-01-02] MEDS: MORPHINE 10 MG/0.5 ML ORAL CONCENTRATE SOLUTION U/D SL PRN (02:03)
[2025-01-06] MEDS ORDERED: SODIUM CHLORIDE 0.9% INJ 10 ML SYR IV PRN (08:00)
[2025-01-08 06:36] VITALS: BP 127/74; TEMP 99.2; O2SAT 96
[2025-01-08 06:54] LABS: BASO # 0.0 10^3/uL (0.0-0.2); BASO % 0.5 % (0.0-1.0); EOS # 0.1 10^3/uL (0.0-0.5); EOS % 3.1 % (0.0-3.0); LYMPH # 1.1 10^3/uL (1.5-5.0); LYMPH % 26.2 % (24.0-44.0); MONO # 0.5 10^3/uL (0.0-0.8); MONO % 11.8 % (2.0-8.0); NEUTROPHILS # 2.4 10^3/uL (1.5-8.5); NEUTROPHILS % 57.9 % (36.0-66.0); PLATELET COUNT, AUTOMATED 234 10^3/uL (150-450)
[2025-01-08 07:12] LABS: ALT/SGPT 22 U/L (7.0-40); AST/SGOT 35 U/L (<34); CALCIUM LEVEL 9.7 MG/DL (8.3-10.6); CARBON DIOXIDE LEVEL 28 MMOL/L (20-31); CHLORIDE LEVEL 101 MMOL/L (98-107); CREATININE FOR GFR 0.54 MG/DL (0.70-1.30); GLOMERULAR FILTRATION RATE > 90.0 (>49); MAGNESIUM LEVEL 1.5 MG/DL (1.8-2.4); POTASSIUM SERUM 4.1 MMOL/L (3.5-5.1); SODIUM LEVEL 139 MMOL/L (136-145)
[2025-01-08] MEDS ORDERED: ACET32TAB PO (11:44)
[2025-01-08] MEDS ORDERED: PANT40TA29 PO (11:44)
[2025-01-08] MEDS ORDERED: HYDR-3715 PO (11:44)
[2025-01-08] MEDS ORDERED: NICO14PA TD (11:44)
== END 2025-01-08 12:30 | DRG 64 ==
LOC: M ED 19:41 → M ED INP 22:15 → M ICU 12-22 01:12 → M MS5PR 12-24 20:40
PROVIDERS: ADMIT Internal Medicine; ATTEND Internal Medicine Nephrology
DX: I62.9 Nontraumatic intracranial hemorrhage, unspecified (principal); G93.6 Cerebral edema; C79.31 Secondary malignant neoplasm of brain; G82.20 Paraplegia, unspecified; C34.92 Malignant neoplasm of unspecified part of left bronchus or lung; I31.39 Other pericardial effusion (noninflammatory); M50.00 Cervical disc disorder with myelopathy, unspecified cervical region; I10 Essential (primary) hypertension; E83.42 Hypomagnesemia; N40.0 Benign prostatic hyperplasia without lower urinary tract symptoms; Z79.01 Long term (current) use of anticoagulants; F11.90 Opioid use, unspecified, uncomplicated; M54.16 Radiculopathy, lumbar region; G89.29 Other chronic pain; M99.73 Connective tissue and disc stenosis of intervertebral foramina of lumbar region; Z86.711 Personal history of pulmonary embolism; Z92.3 Personal history of irradiation; Z92.21 Personal history of antineoplastic chemotherapy; R63.4 Abnormal weight loss; Z88.0 Allergy status to penicillin; Z88.8 Allergy status to other drugs, medicaments and biological substances; F17.200 Nicotine dependence, unspecified, uncomplicated; G62.9 Polyneuropathy, unspecified; Z79.899 Other long term (current) drug therapy; Z51.5 Encounter for palliative care

== ENCOUNTER 2024-12-27 13:15 | Outpatient (RCR) | payer MEDICARE, MEDICAID ==
[~2024-12-27 13:15] MED LIST changes: +SENN-117 PO
== END 2025-01-05 ==
LOC: M ONCR 13:15
PROVIDERS: ATTEND General Practice
DX: Z51.0 Encounter for antineoplastic radiation therapy (principal); C79.31 Secondary malignant neoplasm of brain

== ENCOUNTER → 2025-01-10 | Outpatient (REF) | payer MEDICARE, MEDICAID ==
[~2025-01-10] MED LIST changes: +ACET32TAB PO; +HYDR-3715 PO; +NICO14PA TD; +PANT40TA29 PO
[2025-01-10 09:28] LABS: PLATELET COUNT, AUTOMATED 217 10^3/uL (150-450)
[2025-01-10 09:44] LABS: CALCIUM LEVEL 9.2 MG/DL (8.3-10.6); CARBON DIOXIDE LEVEL 29 MMOL/L (20-31); CHLORIDE LEVEL 101 MMOL/L (98-107); CREATININE FOR GFR 0.55 MG/DL (0.70-1.30); GLOMERULAR FILTRATION RATE > 90.0 (>49); POTASSIUM SERUM 3.8 MMOL/L (3.5-5.1); SODIUM LEVEL 140 MMOL/L (136-145)
== END ==
LOC: SKLAB4 07:00
PROVIDERS: ATTEND Family Medicine
DX: N18.9 Chronic kidney disease, unspecified (principal); D63.1 Anemia in chronic kidney disease

== ENCOUNTER → 2025-01-22 | Outpatient (CLI) | payer MEDICARE, MEDICAID | LOC: M RAD 14:50 | PROVIDERS: ATTEND Physician Assistant | DX: I61.9 Nontraumatic intracerebral hemorrhage, unspecified (principal) ==